=== PATIENT | female | born 1950 | race Caucasian/White ===

== ENCOUNTER 2025-05-18 18:14 | Emergency (ER) | payer SELFPAY ==
[~2025-05-18] VITALS: Ht 167.6 cm; Wt 65.8 kg
[2025-05-18 19:16] LABS: PLATELET COUNT (AUTO) 195 K/uL (179-408); RED BLOOD CELL COUNT(AUTO) 4.87 MIL/uL (3.63-4.92); RED CELL DISTRIBUTION WIDTH 15.1 % (12.3-17.7); WHITE BLOOD COUNT (AUTO) 12.0 K/uL (3.8-11.8)
[2025-05-18 19:24] LABS: ETHANOL < 3 MG/DL (0-10)
[2025-05-18 19:32] LABS: CREATININE 0.8 mg/dL (0.6-1.3); SODIUM SERUM 141 mmol/L (136-145); UREA NITROGEN, BLOOD 17 mg/dL (7-18)
[2025-05-18 19:36] LABS: ASPARTATE AMINOTRANSFERASE 15 U/L (15-37); TOTAL PROTEIN, SERUM 7.9 g/dL (6.4-8.2)
[2025-05-18] MEDS ORDERED: OLANZAPINE 10 MG VIAL IM ONE (20:29)
[2025-05-18] MEDS ORDERED: LORAZEPAM 2 MG/1 ML VIAL ONE (20:30)
[2025-05-18] MEDS: LORAZEPAM 2 MG/1 ML VIAL IM ONE (20:39)
[2025-05-18] MEDS: OLANZAPINE 10 MG VIAL IM ONE (20:39)
[2025-05-18 20:53] LABS: *BILIRUBIN,URIN 1+ (NEGATIVE); *BLOOD, URINE NEGATIVE (NEGATIVE); *CLARITY,URINE SLIGHTLY CLOUDY (CLEAR); *COLOR,URINE YELLOW (YELLOW); *KETONES,URINE TRACE (NEGATIVE); *PROTEIN,URINE 1+ (NEGATIVE); *UROBILINOGEN,URINE 0.2 E.U./dl (NORMAL); LEUKOCYTE ESTERASE ,URINE NEGATIVE (NEGATIVE); NITRITE, URINE NEGATIVE (NEGATIVE); UGLUCOSE NEGATIVE (NEGATIVE)
[2025-05-18 21:04] LABS: *AMPHETAMINE, URINE NEGATIVE (NEGATIVE); *BARBITURATE, URINE NEGATIVE (NEGATIVE); *BENZODIAZEPINE, URINE NEGATIVE (NEGATIVE); *CANNABINOID, URINE NEGATIVE (NEGATIVE); *COCCAINE, URINE NEGATIVE (NEGATIVE); *OPIATE, URINE NEGATIVE (NEGATIVE); *PHENCYCLIDINE SCREEN,URINE NEGATIVE (NEGATIVE); FENTANYL, URINE NEGATIVE (NEGATIVE)
[2025-05-18 21:54] LABS: SQUAMOUS EPITHELIAL CELL,UR MODERATE /HPF (NONE SEEN)
[2025-05-18] MEDS ORDERED: OLAN5TAB3 PO (22:45)
[2025-05-19 05:00] VITALS: BP 145/84
[2025-05-19 06:32] VITALS: BP 145/84; TEMP 98; O2SAT 96
== END 2025-05-19 06:33 | disposition home or self-care (01) ==
LOC: ER 18:39
DX: F29 Unspecified psychosis not due to a substance or known physiological condition (principal); Z59.71 Insufficient health insurance coverage; Z88.0 Allergy status to penicillin; Z79.899 Other long term (current) drug therapy
CPT/HCPCS: 87081; 80076; 80048; 81001; 84443; 85025; 87426; 36415; 71045; 93005; 99285; 96372; 80299; 80320; 80307; J2060; A4606; A4663; G0480; J2358

== ENCOUNTER 2025-06-28 16:47 | Inpatient (IN) | payer OTHER ==
[~2025-06-28] VITALS: Ht 170.2 cm; Wt 79.8 kg
[~2025-06-28 16:47] MED LIST: OLAN-45 PO
[2025-06-28 17:00] VITALS: BP 152/73
[2025-06-28] MEDS ORDERED: ACETAMINOPHEN 325 MG TABLET PO PRN (21:15)
[2025-06-28] MEDS ORDERED: LORAZEPAM 1 MG TABLET PO PRN (21:15)
[2025-06-28] MEDS ORDERED: MAG HYDROX/AL HYDROX/SIMETH 30 ML LIQUID UDC PO PRN (21:15)
[2025-06-28] MEDS ORDERED: ZOLPIDEM 5 MG TABLET PO PRN (21:15)
[2025-06-28] MEDS: BLOOD SUGAR DIAGNOSTIC 1 EACH STRIP VI ONE (21:18)
[2025-06-28] MEDS ORDERED: OLAN-45 PO (21:19)
[2025-06-29] MEDS: NICOTINE 7 MG/24HR PATCH TD SCH (08:23)
[2025-06-29] MEDS: OLANZAPINE 10 MG VIAL IM ONE (09:12)
[2025-06-29] MEDS: OLANZAPINE ZYDIS 5 MG TAB.RAPDIS PO SCH (16:28)
[2025-06-30] MEDS: ASPIRIN 81 MG TAB.CHEW PO SCH (15:31)
[2025-06-30 20:00] VITALS: BP 202/79; TEMP 98.3; O2SAT 96
[2025-06-30] MEDS: ATORVASTATIN 40 MG TABLET PO SCH (21:27)
[2025-07-01] MEDS: CLONIDINE HCL 0.1 MG TABLET PO PRN (00:25)
[2025-07-01 08:00] VITALS: BP 172/67; TEMP 97.7; O2SAT 95
[2025-07-01 09:30] VITALS: BP 158/64; O2SAT 97
[2025-07-01 15:56] VITALS: BP 187/67; TEMP 98.7; O2SAT 97
[2025-07-01] MEDS: LORAZEPAM 1 MG TABLET PO PRN (16:00)
[2025-07-01 17:00] VITALS: BP 158/65; O2SAT 99
[2025-07-01 20:00] VITALS: BP 166/64; TEMP 97.9; O2SAT 97
[2025-07-02 08:32] VITALS: BP 135/48; TEMP 97.7; O2SAT 95
[2025-07-02] MEDS: AMLODIPINE 5 MG TABLET PO SCH (08:48)
[2025-07-02 16:15] VITALS: BP 147/63; TEMP 97.9; O2SAT 97
[2025-07-02] MEDS: MAGNESIUM HYDROXIDE 30 ML LIQUID UDC PO PRN (18:26)
[2025-07-02 20:00] VITALS: BP 180/68; TEMP 98.3; O2SAT 97
[2025-07-02 21:30] VITALS: BP 144/73; O2SAT 98
[2025-07-03] MEDS: ZOLPIDEM 5 MG TABLET PO PRN (03:25)
[2025-07-03 09:32] VITALS: BP 122/52; TEMP 97.7; O2SAT 95
[2025-07-03 16:13] VITALS: BP 120/55; TEMP 97.7; O2SAT 95
[2025-07-03] MEDS: ENSURE ENLIVE (VAN) 240 ML LIQUID PO SCH (17:00)
[2025-07-03 20:04] VITALS: BP 136/64; TEMP 98.1; O2SAT 96
[2025-07-04 08:37] VITALS: BP 148/71; TEMP 98.3; O2SAT 95
[2025-07-04 16:58] VITALS: BP 167/73; TEMP 97.7; O2SAT 95
[2025-07-04 20:00] VITALS: BP 168/62; TEMP 98; O2SAT 94
[2025-07-05 09:45] VITALS: BP 195/64; TEMP 97.8; O2SAT 95
[2025-07-05 10:45] VITALS: BP 148/66; O2SAT 97
== END 2025-07-05 13:00 | disposition home or self-care (01) | DRG 750 ==
LOC: ER 16:53 → GPS 21:01
PROVIDERS: ADMIT Psychiatry & Neurology Psychiatry; ATTEND Nurse Practitioner Family
DX: F29 Unspecified psychosis not due to a substance or known physiological condition (principal); F03.92 Unspecified dementia, unspecified severity, with psychotic disturbance; E66.9 Obesity, unspecified; I69.398 Other sequelae of cerebral infarction; F31.9 Bipolar disorder, unspecified; G93.89 Other specified disorders of brain; F25.9 Schizoaffective disorder, unspecified; R45.850 Homicidal ideations; R45.851 Suicidal ideations; Z68.27 Body mass index [BMI] 27.0-27.9, adult; Z88.0 Allergy status to penicillin; Z91.199 Patient's noncompliance with other medical treatment and regimen due to unspecified reason
CPT/HCPCS: 36415; 70450; 83921; 84443; A9150; J2358